=== PATIENT | female | born 2005 | race Caucasian/White ===

== ENCOUNTER 2023-07-01 09:03 | Emergency (ER) | payer BC ==
[~2023-07-01] VITALS: Ht 177.8 cm; Wt 63.5 kg
[2023-07-01] MEDS ORDERED: ACETAMINOPHEN 325 MG TABLET ONE (09:48)
[2023-07-01] MEDS ORDERED: dexaMETHasone SOD PHOSPHATE 1 ML ONE (09:48)
[2023-07-01] MEDS: dexaMETHasone SOD PHOSPHATE 10 MG/ML VIAL IM ONE (09:49)
[2023-07-01] MEDS: ACETAMINOPHEN 325 MG TABLET PO ONE (09:49)
[2023-07-01 10:25] LABS: PREGNANCY TEST URINE QUAL NEGATIVE (NEGATIVE)
[2023-07-01] MEDS ORDERED: ONDA4TAB5 PO (10:28)
[2023-07-01] MEDS ORDERED: AMOX-430 PO (10:28)
[2023-07-01] MEDS ORDERED: IBUP-1955 PO (10:28)
[2023-07-01 11:04] VITALS: BP 114/69; TEMP 98.9; O2SAT 98
== END 2023-07-01 11:08 | disposition home or self-care (01) ==
LOC: ER 09:03
DX: R59.0 Localized enlarged lymph nodes (principal); R50.9 Fever, unspecified; J45.909 Unspecified asthma, uncomplicated; Z20.822 Contact with and (suspected) exposure to COVID-19
CPT/HCPCS: 99283; 87426; 96372; 87804 ×2; 84703; 87420; J1100